=== PATIENT | male | born 1985 | race Asian ===

== ENCOUNTER 2016-04-17 09:47 | Outpatient (CLI) | payer BC ==
[2016-04-17 10:51] LABS: BASOPHILS % (AUTO) 0.1 % (0.0-2.0); DIFF TOTAL % 100 %; EOSINOPHILS # (AUTO) 0.3 /CMM (0.0-0.7); EOSINOPHILS % (AUTO) 4.3 % (0.0-6.0); HEMATOCRIT 50 % (39-51); HEMOGLOBIN 16.9 g/dL (13.5-17.5); LYMPHOCYTES # (AUTO) 1.9 /CMM (0.8-4.8); LYMPHOCYTES % (AUTO) 24.9 % (20.0-44.0); MEAN CORPUSCULAR HEMOGLOBIN 30 PG (26.0-33.0); MEAN CORPUSCULAR HGB CONC 34 g/dl (31.0-36.0); MEAN CORPUSCULAR VOLUME 88 fL (80-96); MONOCYTES # (AUTO) 0.5 /CMM (0.1-1.30); MONOCYTES % (AUTO) 6.8 % (2.0-12.0); NEUTROPHILS # (AUTO) 4.9 /CMM (1.8-8.9); NEUTROPHILS % (AUTO) 63.9 % (43.0-81.0); PLATELET COUNT (AUTO) 329 /CMM (150-450); RED BLOOD CELL COUNT(AUTO) 5.64 MIL/uL (4.5-6.0); WHITE BLOOD COUNT (AUTO) 7.7 K/uL (4.3-11.0)
[2016-04-17 10:53] LABS: KETONES,URINE NEGATIVE (NEGATIVE); LEUKOCYTE ESTERASE ,URINE NEGATIVE (NEGATIVE)
[2016-04-17 11:05] LABS: ALBUMIN 4.9 g/dL (3.4-5.0); BILIRUBIN,TOTAL 0.4 mg/dL (0.2-1.0); CREATININE 1.1 mg/dL (0.6-1.3); TOTAL PROTEIN, SERUM 9.7 g/dL (6.4-8.2)
[2016-04-17 11:11] LABS: ADD UA MICROSCOPIC YES
[2016-04-17 11:14] LABS: URIC ACID 6.9 mg/dL (2.6-7.2)
[2016-04-17 12:09] LABS: ERYTHROCYTE SEDIMENTATION RATE 21 MM/HR (0-15)
[2016-04-17 12:11] LABS: RBC,URINE 0-2 /HPF (0-2); WBC,URINE NONE SEEN /HPF (0-3)
[2016-04-17 12:12] LABS: ADD URINE CULTURE NO
[2016-04-17 12:47] LABS: THYROID STIMULATING HORMONE 2.419 uIU/mL (0.358-3.74)
[2016-04-18 08:49] LABS: DEHYDROEPIANDROSTERONE 321.3 ug/dL (138.5-475.2)
[2016-04-19 04:17] LABS: *TESTOSTERONE, FREE (DIRECT) 11.8 pg/mL (8.7-25.1)
== END 2016-04-17 23:59 | disposition home or self-care (01) ==
LOC: LAB 09:47
PROVIDERS: ATTEND Legal Medicine
DX: Z00.00 Encounter for general adult medical examination without abnormal findings (principal); E11.9 Type 2 diabetes mellitus without complications; I10 Essential (primary) hypertension; E03.9 Hypothyroidism, unspecified
CPT/HCPCS: 36415; 80053-TC; 80061-TC; 81000-TC; 82306; 84402-TC; 84439-TC; 84443-TC; 84550-TC; 85025-TC; 85652-TC

== ENCOUNTER 2016-05-22 11:09 | Outpatient (CLI) | payer BC | END 2016-05-22 23:59 | disposition home or self-care (01) | LOC: MRI 11:09 | PROVIDERS: ATTEND Legal Medicine | DX: S46.812A Strain of other muscles, fascia and tendons at shoulder and upper arm level, left arm, initial encounter (principal); X58.XXXA Exposure to other specified factors, initial encounter; Y93.89 Activity, other specified; Y92.89 Other specified places as the place of occurrence of the external cause; Y99.8 Other external cause status; M19.012 Primary osteoarthritis, left shoulder | CPT/HCPCS: 73221-TC ==